=== PATIENT | male | born 1945 | race Caucasian/White ===

== ENCOUNTER 2016-09-27 09:06 | Emergency (ER) | payer OTHER, MEDICARE ==
[~2016-09-27] VITALS: Ht 172.7 cm; Wt 68.2 kg
[~2016-09-27 09:06] MED LIST: BENZ-12 PO; PRD5T PO
[2016-09-27 09:23] VITALS: BP 90/69; PULSE 114; RESP 18; O2SAT 100
--- NOTE | 2016-09-27 09:39 | ED.REPORT ---
HPI-General Illness Date of Service September 27, 2016 ED Provider: Renny Jasmine DO Patient is a 71 year old male with a history of lung cancer with brain mets, CVA and pleural effusion with thoracentesis who presents to the ED complaining of upper back pain that he has had for awhile but it has gotten progressively worse over the past week. Associated symptoms include weakness, cough, shortness of breath, dyspnea on exertion and bilateral lower extremity swelling. He denies abdominal pain. The patient reports that he has been on Oxycodone and Decadron for the past week without relief of pain. Patient recently stopped chemotherapy two weeks ago and is not on any anticoagulants. Nursing Notes Stated Complaint: BACK PAIN Chief Complaint: Back Pain or Injury Nursing Notes Reviewed: Yes Allergies: Coded Allergies: No Known Allergies (Unverified , 02/03/16) Scheduled Prednisone (PredniSONE) 5 Mg Tab 5 MG PO every other day Scheduled PRN Benzonatate (Tessalon Perle) 100 Mg Capsule 100-200 MG PO q8hrs prn PRN PRN For Cough oxyCODONE-Acetaminophen 5-325 mg (oxyCODONE-Acetaminophen 5-325 mg) 1 Each Tablet 1-2 TAB PO Q6H PRN PRN For Pain General Time Seen by MD: 09:36 Chief Complaint Back pain Hx Obtained From: Patient Arrived By: Walk-in Sudden in Onset?: No Onset Occurred: 1 week ago Symptom Duration: Since onset Location: : Back Severity: Current: Moderate Associated with: Reports: Weakness Recent Healthcare: No recent hospitalization, Recent doctor visit Similar Sx Previous: Yes Past Medical History Past Medical History CVA pleural effusion with thoracentesis lung cancer with brain mets Reports: Asthma Past Surgical History PICC bilateral cataract surgery bilateral hernia repair septoplasty pilonidal cyst Smoking History Former Smoker Social History Other Social History: Good social support, Ambulatory Status Independent Review of Systems Full Review of Systems Constitutional: Reports: Weakness - generalized Respiratory: Reports: Dyspnea on exertion, Non-productive cough, Shortness of breath GI: Denies: Abdominal pain Musculoskeletal: Reports: Back pain, Extremity swelling (both legs) Complete sys rev & neg: except as marked. Physical Exam Vital Signs Vital Signs Date Time Temp Pulse Resp B/P Pulse Ox O2 Delivery O2 Flow Rate FiO2 09/27/16 10:40 16 99/63 100 Room Air 09/27/16 09:23 36.2 114 18 90/69 100 Initial VS: Reviewed General/Constitutional: Awake, Alert Appearance / Presentation: Positive: Cachectic, Frail, Pale thin Head / Eyes: Atraumatic, Normocephalic, PERRL, EOMI Respiratory / Chest: Atraumatic, No respiratory distress decreased breath sounds in the right base right posterior chest wall, tender to touch Cardiovascular: Regular rhythm, Heart sounds NL Heart Rate / Rhythm: Positive: Tachycardia Abdomen: Atraumatic, Soft, Non-tender Skin: Atraumatic, Color NL, No rash, Warm, Dry Neurologic: Oriented X3, Speech NL, No motor deficits, No sensory deficits Psychiatric: Affect NL, Mood NL Interpretation & Diagnostics Lab Results Interpretation Result Diagram: 09/27/16 1024 09/27/16 1024 Test 09/27/16 10:24 White Blood Count 7.3th/mm3 (3.8-10.1) Red Blood Count 2.27mil/mm3 (4.40-5.80) Hemoglobin 7.2g/dL (13.8-17.2) Hematocrit 23.9% (41.0-50.0) Mean Corpuscular Volume 105.3fL (81-100) Mean Corpuscular Hemoglobin 31.7pg (27.0-35.0) Mean Corpuscular Hemoglobin Concent 30.1% (32.0-37.0) Red Cell Distribution Width 18.4% (12.3-15.4) Platelet Count 246bil/L (150-400) Neutrophils (%) (Auto) 80.9% (40-74) Lymphocytes (%) (Auto) 4.9% (14-46) Monocytes (%) (Auto) 13.8% (4-12) Eosinophils (%) (Auto) 0.1% (0-5) Basophils (%) (Auto) 0% (0-3) Prothrombin Time 11.3sec (8.1-12.5) Prothromb Time International Ratio 1.05ratio Activated Partial Thromboplast Time 29.4sec (22.8-33.0) Sodium Level 143mEq/L (134-144) Potassium Level 4.1mEq/L (3.5-5.2) Chloride Level 104mEq/L (97-108) Carbon Dioxide Level 20mmol/L (18-29) Blood Urea Nitrogen 23mg/dL (8-27) Creatinine 0.72mg/dL (0.76-1.27) Estimat Glomerular Filtration Rate 115mL/min (>59) Glucose Level 121mg/dL (60-99) Calcium Level 9.3mg/dL (8.5-10.1) Magnesium Level 2.1mg/dL (1.6-2.6) Total Bilirubin 0.5mg/dL (0.0-1.2) Aspartate Amino Transf (AST/SGOT) 34U/L (0-50) Alanine Aminotransferase (ALT/SGPT) 18U/L (0-44) Alkaline Phosphatase 82U/L (25-160) Troponin T 0.010ug/L (0.0-0.011) Total Protein 6.3g/dL (6.4-8.4) Albumin 3.6g/dL (3.4-5.0) Hold Mayers Top Tube Received (Received) ECG Interpretation ECG Interpretation: sinus tachycardia, rate [address] changes Time: 10:03 Interpreted by: ED physician X-Ray Chest Interpretation Chest Xray Interpretation: IMPRESSION: Port-A-Cath (previously present) in normal position but a large pleural effusion has now developed with mass effect deviating the mediastinum leftward, and further assessment for thoracentesis under ultrasound guidance likely is warranted. Alternatively, a chest tube placement may be warranted. The exact anatomy of because of this relatively rapid change is uncertain but likely is progression of the previously present mild to moderate pleural effusion seen during CT scanning 08/19/16. Dictated by: Santana Grewal M.D. on 09/27/2016 at 10:36 Approved by: Santana Grewal M.D. on 09/27/2016 at 10:40 View: Portable, 1 view Interpretation / Wet Read by: Interpret - Radiologist Re-Eval/Medical Decision Med Decision/Clinical Course This is a very pleasant 71-year-old male with the chief complaint of right posterior rib cage pain and exertional shortness of breath. He has near complete opacification of his right lung field due to most likely a malignant pleural effusion. He maintains a normal oxygen saturation at rest and with ambulation. Unfortunately, he did not qualify for home oxygen. Attempts were made in the ER to do bedside thoracentesis under ultrasound guidance, additionally attempts were made to coordinate the placement of a Pleurx catheter, and there was discussion about admission with tube thoracostomy and pleural drainage. Ultimately after extensive family discussions both with radiology and consultation with the primary oncologist, the patient has opted to go home with further pain management, a walker, and close follow-up with the oncologist Source of Hx: Old records Time of Eval: 10:45 Re-Evaluation/Progress Note: Discussed X-ray results and plan for thoracentisis. The patient understands and agrees to the procedure. All questions were addressed. Time of Eval: 11:56 Re-Evaluation/Progress Note: After review of the US, the lung is septated and it would not be therapeutic for a thoracentesis. Discussed options for further treatment including getting a cath placed for constant drainage. Time of Eval: 13:06 Re-Evaluation/Progress Note: Discussed available options for chest tube placement or being discharged with oxygen. The patient would like to be discharged with the home oxygen. Discussed plan for discharge with patient. The patient understands and agrees to the plan for discharge. All questions were addressed. Consultation #1: Referral / Consult Name: Oral Koch MD Consulted With: On-call physician (oncology) Call Returned at: 11:30 Machine Coil Assembler: Agrees with eval, Agrees with plan Note: Recommends the patient follow up with him and if there is no indication for fluid studies, the patient can be discharged. Consultation #2: Consulted With: On-call physician Call Returned at: 12:11 Note: JAY Alexandre, who recommends the surgeon place a chest tube since the pleurx cath is actually not a good option. Consultation #3: Referral / Consult Name: Oral Koch MD Consulted With: On-call physician Call Returned at: 12:21 Machine Coil Assembler: Agrees with eval, Agrees with plan Note: Recommends placing the patient on home oxygen instead of placing a chest tube. Counseled Regarding: Diagnosis, Lab results, Need for follow-up, When/why to return to ED Discharge & Departure Primary Impression: Pleural effusion Additional Impression: Back pain Back pain location: back pain in other location Chronicity: acute Qualified Code: M54.9 - Dorsalgia, unspecified Disposition: Home Discharge Condition All VS Reviewed: Yes Condition: Stable Patient Instructions: Pleural Effusion (ED) Additional Instructions: Thank you for trusting us with your care today. You were seen for today for a pleural effusion We were unable to perform a thoracentesis. Since your lung is septated, it would not be therapeutic. You can increase your pain medication to help manage your pain. Do not overtake your medication as it can cause drowsiness. The oxygen should help with your breathing. Please return to the emergency department if you develop any new or worsening symptoms including fever, chest pain, shortness of breath, weakness, numbness or tingling. Referrals: Jere Robertson MD (PCP) Crit Care Except Billable Proc Time Spent: 30-74 minutes Services Performed: Patient management by me, Time spent at bedside, Reviewing test results Critical Care Notes: See MDM Scribe Attestation Portions of this note were transcribed by Rin Barbour. I, Dr. Dana Costa personally performed the history, physical exam and medical decision-making; I reviewed and confirmed the accuracy of the information in the transcribed note. Signed by: Aly Ferguson, 09/27/16 and 1305 copies to: Jere Robertson MD, Timothy S DO September 27, 2016 09:38 Nandini Barbour September 27, 2016 09:58
[2016-09-27] MEDS ORDERED: 0.9% Sodium Chloride 500 ML IV ONE (09:55)
[2016-09-27] MEDS ORDERED: Ondansetron 2 mg/mL 2 mL Inj IVPUSH ONE (09:55)
[2016-09-27 10:28] LABS: BASOPHILS % (AUTO) 0 % (0-3); EOSINOPHILS % (AUTO) 0.1 % (0-5); MONOCYTES % (AUTO) 13.8 % (4-12); Mean Corpuscular Hemoglobin 31.7 pg (27.0-35.0); Mean Corpuscular Volume 105.3 fL (81-100); NEUTROPHILS % (AUTO) 80.9 % (40-74); Platelet Count 246 bil/L (150-400)
[2016-09-27 10:40] VITALS: BP 99/63; RESP 16; O2SAT 100
--- NOTE | 2016-09-27 10:41 | DRSVH ---
PROCEDURE: X-RAY CHEST ONE VIEW, PORTABLE ([id number]) INDICATIONS: chest pain/hx lung ca and pleural effusion TECHNIQUE: One view of the chest was acquired. COMPARISON: [facility], CT, CT CHEST ABD PELVIS W CON, 08/19/2016, 11:04. [facility], CT, CT JOSEPH, 09/19/2016, 14:20. [facility], CR, XR CHEST 1VW (PORTABLE), 2015, 14:06. [facility], CR, XR CHEST 1VW, 12/21/2015, 9:54. FINDINGS: Surgical changes and devices: Port-A-Cath from a left-sided approach extends to the distal SVC.. Lungs and pleura: There is what appears to be a very large right-sided pleural effusion with mass eff ect deviating the mediastinum leftward, with only a small portion of the medial right upper lung moose ining aerated. Lungs are clear. Mediastinum: Mediastinal contours appear normal. Heart size is normal. Bones and chest wall: No suspicious bony lesions. Overlying soft tissues appear unremarkable. IMPRESSION: Port-A-Cath (previously present) in normal position but a large pleural effusion has now developed with mass effect deviating the mediastinum leftward, and further assessment for thoracentes is under ultrasound guidance likely is warranted. Alternatively, a chest tube placement may be warranted. The exact anatomy of because of this relativ evaristo rapid change is uncertain but likely is progression of the previously present mild to moderate pl eural effusion seen during CT scanning 08/19/16. Dictated by: Santana Grewal M.D. on 09/27/2016 at 10:36 Approved by: Santana Grewal M.D. on 09/27/2016 at 10:40
[2016-09-27 10:44] LABS: INR 1.05 ratio
[2016-09-27 11:00] LABS: TROPONIN T 0.01 ug/L (0.0-0.011)
[2016-09-27 11:11] LABS: Magnesium 2.1 mg/dL (1.6-2.6)
[2016-09-27] MEDS ORDERED: OXYC1TAB24 PO (13:44)
[2016-09-27 14:18] VITALS: BP 117/71; PULSE 94; RESP 17; O2SAT 99
--- NOTE | 2016-09-27 14:52 | DRSVH ---
PROCEDURE: US CHEST/PLEURAL SONOGRAM INDICATIONS: eval for thoracentesis right chest COMPARISON: [facility], CR, XR CHEST 1VW (PORTABLE), 09/27/2016, 10:00. FINDINGS: Multiloculated, honeycomb non-mobile right pleural effusion is present. IMPRESSION: Multiloculated, non-mobile right pleural effusion. Dictated by: Juan Antonio KOEHLER Interpreted: Santana Grewal MD on 09/27/2016 at 14:51 Transcribed by: GURMEET on 09/27/2016 at 14:52 Approved by: Santana Grewal M.D. on 09/27/2016 at 15:33
== END 2016-09-27 12:55 | disposition home or self-care (01) ==
LOC: SED 09:06
DX: J90 Pleural effusion, not elsewhere classified (principal); M54.6 Pain in thoracic spine; R53.1 Weakness; R06.00 Dyspnea, unspecified; M79.89 Other specified soft tissue disorders; J45.909 Unspecified asthma, uncomplicated; Z86.73 Personal history of transient ischemic attack (TIA), and cerebral infarction without residual deficits; Z95.828 Presence of other vascular implants and grafts; Z87.891 Personal history of nicotine dependence
CPT/HCPCS: 36415; 71010; 76604; 80053; 83735; 84484; 85025; 85610; 85730; 93005; 96361; 96374; 96375; 99291; J2270; J2405; J7040

== ENCOUNTER 2016-09-29 01:15 | Inpatient (IN) | payer OTHER, MEDICARE ==
[~2016-09-29] VITALS: Ht 172.7 cm; Wt 68.1 kg
[2016-09-29] VITALS (12 sets, daily range): BP systolic 87–110; BP diastolic 59–77; PULSE 60–99; RESP 12–33; O2SAT 94–100
[~2016-09-29 01:15] MED LIST changes: +OXYC1TAB24 PO
--- NOTE | 2016-09-29 01:18 | ED.REPORT ---
HPI-Dyspnea / Wheezing Date of Service Sep 29, 2016 ED Provider: Dr. Cheema Pt is a 71 y/o male w/ a hx of metastatic lung CA with mets to the brain, asthma , CVA, presenting to the ED via EMS with his daughter c/o worsening SOB and mid- right CP onset today. The patient was seen in the ED yesterday and it was found that he had almost a complete whiteout pleural effusion of his right lung. He was not sent home with oxygen because he passed a road test and did not meet insurance criteria. There was a lengthy discussion during that visit which resulted in the opinion that a chest tube or thoracentesis should not be performed. He has a hospice nurse coming on October 01 to discuss options for end of life care. He experiences SOB while sitting up at rest. His chest pain is somewhat relieved by sitting up and bending over. The patient has been unable to exert himself by walking around due to dyspnea. He has been taking up to 4x oxycodone every 6 hours and relates it has not been working. CODE STATUS: DNR and DNI - discussed with patient, daughter, and friend who is PoA Oncologist: Lizandro Nursing Notes Stated Complaint: INCREASED SHORTNESS OF BREATH Nursing Notes Reviewed: Yes Allergies: Coded Allergies: No Known Allergies (Unverified , 09/29/16) Scheduled Dexamethasone (Dexamethasone) 1 Mg Tab 2 MG PO DAILY Scheduled PRN Benzonatate (Tessalon Perle) 100 Mg Capsule 100-200 MG PO q8hrs prn PRN PRN For Cough Ibuprofen (Ibuprofen) 200 Mg Capsule 200 MG PO QID PRN PRN For Pain Oxycodone (Roxicodone) 5 Mg Tablet 20 MG PO Q4H PRN PRN For Pain General Time Seen by MD: 01:20 Chief Complaint Chest pain, Shortness of breath Hx Obtained From: Patient, Daughter, EMS Arrived By: Ambulance Onset Occurred: 1 - 4 hours ago Symptom Duration: Since onset Location: : Chest right Quality: Painful Severity: Current: Moderate Severity: Maximum: Moderate Past Medical History Past Medical History Notes: Oncologist: Lizandro Past Medical History 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 Physical Exam Initial Vital Signs Vital Signs (First) Date Time Temp Pulse Resp B/P Pulse Ox O2 Delivery O2 Flow Rate FiO2 09/29/16 01:19 93 33 87/59 Room Air Initial VS: Reviewed, Vital signs abnormal Head / Eyes: Atraumatic, Normocephalic, PERRL ENT: Mucous membranes moist, Conjunctiva normal, No scleral icterus Extremities: Vascular intact, Neuro intact, No swelling, No tenderness Neurologic: Alert, Oriented, Nonfocal Psychiatric: Mood/affect normal, Behavior normal, Normal thought content General/Constitutional: Awake, Alert, Cooperative Appearance / Presentation: Positive: Cachectic, Pale Chronically ill-appearing Very hard of hearing CODE STATUS: DNR and DNI - discussed with patient, daughter, and friend who is PoA Neck: Atraumatic, Supple, No meningismus, Full range of motion Respiratory / Chest: Atraumatic, No stridor Sitting upright. Obvious difficulty breathing despite 100% O2 saturation on room air No breath sounds on the right Wheezes present on the left Cardiovascular: Heart rate NL, Regular rhythm, Heart sounds NL, No murmurs No edema Skin: Atraumatic, Dry, Intact Pallor present Re-Eval/Medical Decision Med Decision/Clinical Course 71-year-old man with metastatic lung cancer. Large right pleural effusion with mediastinal shift. Still saturating 100% on room air despite significant pain and tachypnea. We seen in the emergency room yesterday long discussion regarding drainage of the pleural fluid and decision was made to not drain and proceed with comfort measures. Hospice was contacted however they will be old come to his home for at least another 2 days for their initial visit and did not expect begin services for at least 3 days. No meantime he is begun to be significantly marked tachypnea And his 20 mg of oxycodone every 4 hours as no longer adequate for pain control. Will admit for uncontrolled pain and significant hypoxia related to his metastatic cancer with the anticipation of discharge home with hospice as soon as comfort measures and hospital but can be arranged Source of Hx: Old records, EMS, Family Re-Evaluation/Progress : Time of Eval: 01:36 Re-Evaluation/Progress Note: Pt rechecked. Informed pt of need for admission. Pt understands and agrees with plan for admission. All questions addressed. Consultation : Referral / Consult Name: Naun Mckinney MD Consulted With: Hospitalist Call Returned at: 02:05 Dye Range Tender: Will see patient, Agrees with eval, Agrees with plan, Accepts admit Counseled Regarding: Diagnosis, Need for admission Discharge & Departure Impression: Primary Impression: Intractable pain Additional Impressions: Pleural effusion, right Metastatic primary lung cancer Laterality: right Qualified Code: C34.91 - Malignant neoplasm of unspecified part of right bronchus or lung Disposition: ADMITTED TO HOSPITAL Discharge Condition All VS Reviewed: Yes Condition: Stable Referrals: Jere Robertson MD (PCP) Aly Attestation Portions of this note were transcribed by Efrain Connor. I, Dr. Cheema personally performed the history, physical exam and medical decision-making; I reviewed and confirmed the accuracy of the information in the transcribed note. Signed by Aly Craven, 09/29/16 - 0200 copies to: Jere Robertson MD, Shawna L MD Sep 29, 2016 01:18 EFRAIN CONNOR Sep 29, 2016 01:26
[2016-09-29] MEDS ORDERED: 0.9% Sodium Chloride 1,000 ML IV ONE (01:39)
[2016-09-29] MEDS ORDERED: HYDROmorphone 1 mg/mL Inj IVPUSH PRN (01:40)
[2016-09-29] MEDS ORDERED: HYDROmorphone 1 mg/mL Inj IVPUSH ONE (01:40)
[2016-09-29] MEDS ORDERED: Morphine PCA 1 mg/mL 30 mL Inj IV PRN (02:20)
[2016-09-29] MEDS ORDERED: Ondansetron 2 mg/mL 2 mL Inj IVPUSH PRN ×2 (02:20)
[2016-09-29] MEDS ORDERED: Polyethylene Glycol (PEG) 17 Gm Powder PO PRN (02:20)
[2016-09-29] MEDS ORDERED: Alum-Mag Hydrox-Simeth 30 mL Suspension PO PRN (02:20)
[2016-09-29] MEDS ORDERED: DEX1 PO (02:35)
[2016-09-29] MEDS ORDERED: IBUP200C PO (02:35)
[2016-09-29] MEDS ORDERED: OXYC-474 PO (02:35)
--- NOTE | 2016-09-29 04:04 | PCM.HPMED ---
Subjective Date of Service Sep 29, 2016 Primary Provider: Admitting Physician: Naun Mckinney MD Primary Care Physician: Jere Robertson MD Attending Physician: Naun Mckinney MD Chief Complaint: Thoracic pain History of Present Illness: Mr. Short is a 71-year-old male with past medical history of metastatic lung cancer with metastasis to the brain - (voluntarily ending chemotherapy 2 weeks ago), asthma, pleural effusion with thoracentesis and CVA who presented to the ED via EMS in care of daughter and caregiver complaining of worsening shortness of breath and chest pain 1 day. He was seen on 09/27/2016 for back pain with shortness of breath which was refractory to pain medication. Imaging showed that he had an extensive pleural effusion of his right lung "almost a complete white out", after a discussion it was decided that he would not want a chest tube or thoracentesis and was discharged home. Unfortunately he was not sent home with home O2 because he passed a road test and did not meet insurance criteria. He reportedly had an appointment with a hospice nurse on October 01 to discuss options for end-of-life care. Today he states that he is still short of breath and the pain medications he has at home were not adequately resolving his pain. His pain is somewhat relieved by changes in body position those mostly unable to exert himself in anyway secondary to shortness of breath. At time of interview patient's granddaughter and caregiver/friend/POA present in the room. He denies cardiac related chest pain, headache or abdominal pain, and stated the pain medicine he received in the ED was working very well. Patient is a DNR/DNI and is interested in discussions regarding transition to comfort care during this hospital visit Review of Systems: A comprehensive review of systems was conducted with the patient and found to be negative except as above in the history of present illness. 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 pleural effusion with prior thoracentesis Reports: Asthma Surgical History PICC bilateral cataract surgery bilateral hernia repair septoplasty pilonidal cyst Family History Noncontributory Social History Hx Alcohol Use: Yes (QUIT 2000 (WAS MOD TO HEAVY)) Hx Substance Use: No Hx Tobacco Use: Yes (1-4 ppd x50 years) Smoking Status: Former Smoker Exam Vital Signs Vital Sign - Last Date Time Temp Pulse Resp B/P Pulse Ox O2 Delivery O2 Flow Rate FiO2 09/29/16 03:23 36.4 16 108/77 97 1.00 09/29/16 03:17 99 Nasal Cannula Intake and Output 09/28/16 09/28/16 09/29/16 Cumulative From/Thru 15:00 23:00 07:00 09/29/16 01:19 - 09/29/16 03:23 Intake Total 500 ml 500 ml Balance 500 ml 500 ml Intake IV Total 500 ml 500 ml Exam General: Chronically ill-appearing male sitting up in hospital bed in no acute distress, appropriately interactive HEENT: Normocephalic, atraumatic. External ears without defect. Pupils equal, round, and reactive to light and accommodation. Anicteric sclerae, moist conjunctivae, and no lid lag. Very hard of hearing Cardiovascular: Regular rate and rhythm with no murmurs, rubs, or gallops appreciated Pulmonary: Increased respiratory effort with no use of accessory muscles, absent breath sounds in all right lung andino, inspiratory and expiratory wheezes left lung andino Abdomen: Soft, nontender, nondistended Extremities: No clubbing, cyanosis, edema, or lymphadenopathy appreciated. Skin: Pallor Neurological: Cranial nerves grossly intact. Psychiatric: Normal mood and affect. Alert and oriented to person, place, and time. Lab and Diagnostics X-Rays, CTs and MRIs . MRI BRAIN WITH AND WITHOUT CONTRAST IMPRESSION: 1. Significant worsening of intracranial metastases. 2. 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 2. No midline shift. Dictated by: Ezio Hutchison M.D. on 09/17/2016 X-RAY CHEST ONE VIEW, PORTABLE IMPRESSION: Port-A-Cath (previously present) in normal position but a large pleural effusion has now developed with mass effect deviating the mediastinum leftward, and further assessment for thoracentesis under ultrasound guidance likely is warranted. Alternatively, a chest tube placement may be warranted. The exact anatomy of because of this relatively rapid change is uncertain but likely is progression of the previously present mild to moderate pleural effusion seen during CT scanning 08/19/16. Dictated by: Santana Grewal M.D. on 09/27/2016 US CHEST/PLEURAL SONOGRAM IMPRESSION: Multiloculated, non-mobile right pleural effusion. Dictated by: Juan Antonio Daniels RRA Interpreted: Santana Grewal MD on 09/27/2016 Assessment & Plan Mr. Short is a 71-year-old male with past medical history of metastatic lung cancer with metastasis to the brain, asthma, pleural effusion admitted for shortness of breath and thoracic chest pain secondary to advancement of terminal disease process. Metastatic lung cancer with metastases to brain. Present on admission. Ongoing - Medications for patient comfort to include IV morphine [employer], Ativan - Palliative care consult ordered, with patient's stated goal of transitioning to comfort care Malignant Pleural Effusion - Pt does not wish to have thoracentesis or chest tube placement - Continue with supportive care Asthma. Present admission. Ongoing - DuoNeb's when necessary Patient Status: Patient was admitted under inpatient status with expected length of stay greater than two midnights due to severity of presenting symptoms , risk of adverse event, and complexity of treatment plan. Pain Evaluation: Adequate Pain Control Resuscitation Status: DNR/DNI:Do Not Resuscitate/Intubate Attending Statement The patient was seen and examined together with Dr. Jarvis on 09/29 and I agree with the history, exam and plan as outlined in the note above. CATE JARVIS DO Sep 29, 2016 04:04 Naun Mckinney MD Sep 29, 2016 04:39
[2016-09-29] MEDS ORDERED: Albuterol-Ipratropium 3 mL Inhalation Solution NEB PRN (04:15)
--- NOTE | 2016-09-29 06:29 | NUR ---
ADMISSION PT ARRIVED ON UNIT FROM ER AT 0300. TRANSPORTED VIA GURNEY. 3 PERSONS TO TRANSFER TO BED. PT IS HERE FOR PAIN CONTROL AND BREATHING RELATED TO LUNG CANCER WITH METS TO BRAIN. PT HAD REC'D DILAUDID IN THE ER SO REPORTED PAIN AT 2-3/10 WHICH IS TOLERABLE, PAIN LOCATED IN RIGHT SHOULDER. PT IS DNR-REVIEWED WHILE MD IN ROOM. DAUGHTER AND ROUSTABOUT CREW PUSHER AT BEDSIDE. PT ORIENTED TO CALL LIGHT AND BED/TV CONTROLS. PT IS A/O X3, HAS SOME TROUBLE REMEMBERING HIS WORDS AND IS [place]. GENERAL DIET, PT STATES HE HAS HAD A GOOD APPETITE UP UNTIL YESTERDAY. HE HAD BEEN TO ER AND HAD FLUID DRAINED FROM HIS LUNGS. PT STATED HE HAS BEEN HAVING CHEMO AND RADIATION A FEW DAYS AGO WHEN HE GOT REALLY SICK. PT IS ON 1-2L O2 FOR COMFORT, HOSPICE CONSULT IS SCHEDULED ALREADY BY FAMILY AND PT. HE WISHES TO GO BACK HOME. 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 IV PATENT.
--- NOTE | 2016-09-29 09:36 | NUR ---
Social work Note - Initial Assessment Xavier Short is a 71 yr old who was admitted for intractable pain. Pt has Metastatic Lung CA that is no longer being treated. EMR reviewed: Pt has HMA and Medicare insurance, his PCP is Dr Robertson. Readmit score is not available. See attached CM initial assessment. HEALTHCARE EDUCATOR attempted to meet with pt - pt asleep, pain is controlled. HEALTHCARE EDUCATOR called Pt's DPOA - Marline Wynne [phone] who states that pt lives with him in [place]. He and his family have decided to transition to Hospice - have the initial paperwork done, and hospice was to open for services on MondayOctober 01. He however could not handle the pain. They have a walker at home, but would need a hospital bed and are open to whatever equipment would be helpful. He does not have O2 set up at home. HEALTHCARE EDUCATOR spoke with [facility] at [facility] - [phone] who confirmed open date of 10/01/16 at 10:00. BRIANNE described equipment needs of the family and Elen will reach out to family to set up delivery time. HEALTHCARE EDUCATOR discussed with Raina HERNANDEZ who will continue to follow. Plan: [facility] early Monday Morning- family hopes to transport by POV depending on Pt's pain/ability to transfer or Cabulance. TRI Ryan Addendum: 09/29/16 at 0944 by CHOLO WARREN SS Amended: Links added.
--- NOTE | 2016-09-29 11:13 | NUR ---
Palliative Care Palliative Care received order from Dr Jarvis 09/29/16 to assist with goals of care and pain management. Patient with lung cancer with mets to brain, was admitted last night due to dyspnea and intractable pain. He has told medical team he wants to transition to comfort care. Hospice can open on 10/01/16. Pt. may be able to D/C before this date if his symptoms are well managed. Dr Seay saw patient for Outpatient Palliative consult on 08/29/16. Patient resides with family. Marline Wynne (friend/dpoa) [phone] Adeline Hernandez (daughter) [phone] Palliative Care to follow. June Pérez
[2016-09-29] MEDS ORDERED: Morphine 20 mg/mL Oral Syringe SL/PO PRN (15:35)
--- NOTE | 2016-09-29 15:46 | PCM.CONPAL ---
Date of Service Sep 29, 2016 Date of Hospital Admission: Sep 29, 2016 at 02:28 Date of Palliative Consult: Sep 29, 2016 Requesting Provider: CATE ARREOLA DO Reason Palliative Care Consult: Pain, Goals of Care Discussion, Hospice Referral & Discussion Hospital Unit @time of consult: Orthopedic/Surgical Care Palliative Care Recommendation Summary of palliative recommendations: -Symptom management (Pain/other) Pain -- requiring minimal meds for control. Will try oral meds-MS lorazepam and haldol PRN Hospice notified. CM notified he will need hospital bed and O2 for comfort Effusion- apparently at ER decided this cannot be tapped- will treat medically Known brain mets- remains mentally astute and has no sz -DPOA/Advanced Directives/POLST--DNR/DNI/no FT -Family/emotional support--profound with Marline and his patt [place] Additional Medical Diagnoses with primary management by Hospitalist team include : Problems: End of Life Preferences DNR/comfort Disposition Home when able to get hospital bed and hospice at least near Resuscitation Status Resuscitation Status: DNR/DNI:Do Not Resuscitate/Intubate POLST Updates/Changes Previous POLST?: Yes POLST Discussed with: Patient . Advanced Care Planning Address: Comfort care Pain: Moderate Symptom management: Dyspnea, Constipation (will check with family before addressing constipation) Pt History History of Present Illness Mr. Short is a 71-year-old male with past medical history of metastatic lung cancer with metastasis to the brain - (voluntarily ending chemotherapy 2 weeks ago), asthma, pleural effusion with thoracentesis and CVA who presented to the ED via EMS in care of daughter and caregiver complaining of worsening shortness of breath and chest pain 1 day. He was seen on 09/27/2016 for back pain with shortness of breath which was refractory to pain medication. Imaging showed that he had an extensive pleural effusion of his right lung "almost a complete white out", after a discussion it was decided that he would not want a chest tube or thoracentesis and was discharged home. Unfortunately he was not sent home with home O2 because he passed a road test and did not meet insurance criteria. He reportedly had an appointment with a hospice nurse on October 01 to discuss options for end-of-life care. Today he states that he is still short of breath and the pain medications he has at home were not adequately resolving his pain. His pain is somewhat relieved by changes in body position those mostly unable to exert himself in anyway secondary to shortness of breath. At time of interview patient's granddaughter and caregiver/friend/POA present in the room. He denies cardiac related chest pain, headache or abdominal pain, and stated the pain medicine he received in the ED was working very well. 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 He has been on his final option for chemo but his ds has been progressing so he recently quit txmt and is now awaiting Hospice to be able to open. Oxycodone at home was not enough to cover his pain. He was seen in the ER and given IV hydromorphone and lorazepam and that has lasted him 6-8 hours He is weak, anoretic, SOB. He is intermittently confused but doesn't think he had a BM in the past week. He has been assisted at home by his exGF Marline who moved in with him a number of months ago to help him and by his daughter Kizzy. They have already been in contact with Hospice and are set up to open on Sat. He has done all the paperwork including DPOAHC and a will and completed a POLST 1 month ago DNR. 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 Q4H PRN IVPUSH; Start 09/29/16 at 02: 20 Al Hydrox/Mg Hydrox/Simethicone 30 ml Q6H PRN PO; Start 09/29/16 at 02:20 Ondansetron HCl 4 to 8 mg Q4H PRN IVPUSH; Start 09/29/16 at 02:20 Senna 17.2 mg BID PRN PO; Start 09/29/16 at 02:20 Polyethylene Glycol 17 gm DAILY PRN PO; Start 09/29/16 at 02:20 Albuterol/ Ipratropium 3 ml Q4H PRN NEB; Start 09/29/16 at 04:15 Lorazepam 1 mg PRN PRN IVPUSH; Start 09/29/16 at 04:15 Scheduled Dexamethasone (Dexamethasone) 1 Mg Tab 2 MG PO DAILY Scheduled PRN Benzonatate (Tessalon Perle) 100 Mg Capsule 100-200 MG PO q8hrs prn PRN PRN For Cough Ibuprofen (Ibuprofen) 200 Mg Capsule 200 MG PO QID PRN PRN For Pain Oxycodone (Roxicodone) 5 Mg Tablet 20 MG PO Q4H PRN PRN For Pain Objective Findings Exam Vital Sign - Last Date Time Temp Pulse Resp B/P Pulse Ox O2 Delivery O2 Flow Rate FiO2 09/29/16 11:55 36.4 99 18 107/73 94 Room Air 09/29/16 03:23 1.00 Intake and Output 09/28/16 09/28/16 09/29/16 Cumulative From/Thru 15:00 23:00 07:00 09/29/16 01:19 - 09/29/16 03:57 Intake Total 500 ml 500 ml Balance 500 ml 500 ml Intake IV Total 500 ml 500 ml General: Alert/Oriented x3, Other (recognizes me from 1 month ago, dyspneic, not moving much in bed due to discomfort) HEENT: PERRLA, Scleral Anicteric Heart: Tachycardia Lungs: Tachypneic, Other (dull R CXR with near complete opacification) Abdomen: Soft Neuro: Cranial Nerve 3-12 Intact Lab/Diagnostics Lab and Imaging results reviewed in detail in EMR. effusion thought to be to loculated to tap Patient/Family Conference Members Present Family Members Present pt Medical Team Members Present? Eulalia AGUILA PC Discussion/Goals of Care Discussion FAMILY UNDERSTANDING OF DISEASE: Patient is very straightforward in requesting comfort care, meds as needed and goal to get home to with assistance of hospice DISEASE PROGRESSION/EVIDENCE OF DECLINE:sudden profound decline SYMPTOM BURDEN: pain dyspnea and weakness-profound Time spent Total time 50 minutes; >50% face to face with patient and/or family, providing counselling regarding plans and recommendations, and in care coordination with his/her medical teams. I also spent an additional [ ] minutes counseling for advanced care planning with the patient/the patients family/the surrogate decision maker. copies to: Oral Koch MD, Deborah A MD Sep 29, 2016 15:46
--- NOTE | 2016-09-29 19:51 | NUR ---
Constipation/Pain Last BM was 09/22 per pt and caregiver. Dr. Seay notified and recommended starting with Senchristine. CLAUDY RN to administer this evening. Pt has denied pain most of the day while at rest and minimally used his RN CORRECTIONAL (6mg). Palliative ordered liquid Morphine which he would like to start tonight before bed. Hospice visit set up for tomorrow.
[2016-09-30 03:03] VITALS: RESP 18
[2016-09-30] MEDS: Morphine 2 mg/mL 5 mL Oral Solution PO PRN ×5 (05:58→21:16)
--- NOTE | 2016-09-30 06:09 | NUR ---
Medication/Pain Pt utilizes BUTTON TUFTER for pain control, willing to try Oral Morphine in AM. Offered Senna in addition. Pt allows repositioning, wears O2 2L at noc. No CPOX per pt comfort. Repositioned when willing. Some urine voided this shift, minimal amount. IV TKO in RFA peripheral IV. Care continues
[2016-09-30 06:50] VITALS: RESP 18
--- NOTE | 2016-09-30 09:15 | PCM.PALLBR ---
Palliative Care Recommendation Summary of palliative recommendations: -Symptom management (Pain/other) Pain -- MAR reviewed, used 10mg IV morphine overnight (equals 30mg po morphine) 1. D/C SUPERVISOR PAPER TESTING morphine. 2. Start MS long acting 15mg po BID for pain and dyspnea 3. Continue MS liquid 2mg po q 4h for breakthrough symptoms of pain and dyspnea. Please send home on #2 and #3 meds above. Hospice notified. CM notified on 09/29 that he will need hospital bed and O2 for comfort Effusion- apparently at ER decided this cannot be tapped- will treat medically Known brain mets- remains mentally astute and has no sz DPOA/Advanced Directives/POLST: DNR/DNI/no FT Family/emotional support: ex GF Marline and his dtr Kizzy Problems: End of Life Preferences DNR/comfort Goals of Care Wants to go home with hospice Disposition Home when able to get hospital bed and hospice at least near Resuscitation Status Resuscitation Status: DNR/DNI:Do Not Resuscitate/Intubate POLST Updates/Changes Previous POLST?: Yes POLST Last Review Date: Sep 29, 2016 Artificially Admin Nutrition: No Artifical Nutrition by Tube POLST Discussed with: Patient POLST Review Outcome: No Change . Pain: Moderate Symptom management: Dyspnea Total time 35 minutes; >50% face to face with patient and/or family, providing counselling regarding plans and recommendations, and in care coordination with his/her medical teams. I also spent an additional [ ] minutes counseling for advanced care planning with the patient/the patients family/the surrogate decision maker. Palliative Brief Note Date of Service Sep 30, 2016 . Patient Identification Mr. Short is a 71-year-old male with past medical history of metastatic lung cancer with metastasis to the brain - (voluntarily ending chemotherapy 2 weeks ago), asthma, pleural effusion with thoracentesis and CVA who presented to the ED via EMS in care of daughter and caregiver complaining of worsening shortness of breath and chest pain 1 day. He was seen on 09/27/2016 for back pain with shortness of breath which was refractory to pain medication. Imaging showed that he had an extensive pleural effusion of his right lung "almost a complete white out", after a discussion it was decided that he would not want a chest tube or thoracentesis and was discharged home. Unfortunately he was not sent home with home O2 because he passed a road test and did not meet insurance criteria. He reportedly had an appointment with a hospice nurse on October 01 to discuss options for end-of-life care. He was admitted for dyspnea and intractable pain which has been relieved by a SUPERVISOR PAPER TESTING morphine. Hospital Course On workup of his dyspnea, he was found to have a massive R pleural effusion that was loculated , so not tapped. He is willing to transition to hospice at home as soon as his pain and dyspnea are in better control. He was also constipated, likely related to opiates and bedrest. He has been assisted at home by his exGF Marline who moved in with him a number of months ago to help him and by his daughter Kizzy. They have already been in contact with Hospice and are set up to open on Sat. He has done all the paperwork including DPOAHC and a will and completed a POLST 1 month ago DNR. His PPS was 90% 1 month ago, he was still driving, walking with a cane but working hard to do all his ADLs He is now PPS 20-30 Subjective: he reports the morphine IV is working, but still "not enough." He feels ready to swallow pills today and try to turn off the SUPERVISOR PAPER TESTING. Exam: General: emaciated, frail elderly man, able to sit up in bed with one assist, using handrails. HEENT: PERRL, EOMI, pupils pinpoint, makes direct eye contact. bitemporal wasting Lungs: wet rhonchi Cor: S1,S2, rrr Abdomen: soft, nontender Extrem: no edema Neuro: Alert and orient x 3, has insight into disease, nonfocal CN MS: generalized weakness, nonfocal. Adela Reid MD Sep 30, 2016 09:15
[2016-09-30] MEDS: Morphine ER 15 mg (MS Contin) Tablet PO SCH ×2 (09:25→21:15)
[2016-09-30 12:01] VITALS: PULSE 108; RESP 22; O2SAT 99
--- NOTE | 2016-09-30 12:56 | PCM.PNMED ---
Subjective Date of Service Sep 30, 2016 Subjective JANITOR CUSTODIAN is off, switched to morphine oral, looked comfortable, mildly labored breathing with upper respiratory sounds, otherwise no complaints, awaits dispo Exam Vital Signs Vital Sign - Last Date Time Temp Pulse Resp B/P Pulse Ox O2 Delivery O2 Flow Rate FiO2 09/30/16 12:01 108 22 99 Nasal Cannula 2.00 09/29/16 19:24 36.6 103/70 Intake and Output 09/29/16 09/29/16 09/30/16 Cumulative From/Thru 15:00 23:00 07:00 09/29/16 01:19 - 09/30/16 06:37 Intake Total 60 ml 467 ml 1027 ml Output Total 0 ml 220 ml 220 ml Balance 60 ml 247 ml 807 ml Intake Oral 60 ml 200 ml 260 ml IV Total 267 ml 767 ml Output Urine Total 0 ml 220 ml 220 ml # Bowel Movements 0 0 IVs and Medications Medications Reviewed: Medications were reviewed in detail Lab and Diagnostics X-Rays, CTs and MRIs . MRI BRAIN WITH AND WITHOUT CONTRAST IMPRESSION: 1. Significant worsening of intracranial metastases. 2. 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 2. No midline shift. Dictated by: Ezio Hutchison M.D. on 09/17/2016 X-RAY CHEST ONE VIEW, PORTABLE IMPRESSION: Port-A-Cath (previously present) in normal position but a large pleural effusion has now developed with mass effect deviating the mediastinum leftward, and further assessment for thoracentesis under ultrasound guidance likely is warranted. Alternatively, a chest tube placement may be warranted. The exact anatomy of because of this relatively rapid change is uncertain but likely is progression of the previously present mild to moderate pleural effusion seen during CT scanning 08/19/16. Dictated by: Santana Grewal M.D. on 09/27/2016 US CHEST/PLEURAL SONOGRAM IMPRESSION: Multiloculated, non-mobile right pleural effusion. Dictated by: Juan Antonio Daniels [facility] Interpreted: Santana Grewal MD on 09/27/2016 Assessment & Plan Mr. Short is a 71-year-old male with past medical history of metastatic lung cancer with metastasis to the brain, asthma, pleural effusion admitted for shortness of breath and thoracic chest pain secondary to advancement of terminal disease process. Metastatic lung cancer with metastases to brain. Present on admission. Ongoing - pt seemed comfortable with current management - Medications for patient comfort to include IV morphine JANITOR CUSTODIAN, Ativan, now on morphine standing prn dosing per Palliative care - hospice to be set up tomorrow, Malignant Pleural Effusion - Pt does not wish to have thoracentesis or chest tube placement - Continue with supportive care Asthma. Present admission. Ongoing - DuoNeb's when necessary Patient Status: discharge tomorrow with hospice Resuscitation Status: DNR/DNI:Do Not Resuscitate/Intubate Time spent 35min Ayala Gerber MD Sep 30, 2016 12:56
--- NOTE | 2016-09-30 15:50 | NUR ---
ARRANGED BLS TRANSPORT TO PRIVATE RESIDENCE ON [facility] FOR 9AM. ADVISED SCRAP METAL PROCESSING WORKER.
[2016-09-30 20:28] VITALS: PULSE 50; RESP 20; O2SAT 98
[2016-10-01 04:35] VITALS: BP 101/72; PULSE 77; RESP 18; O2SAT 93
--- NOTE | 2016-10-01 05:15 | NUR ---
Pain management MS Contin appears to be providing adequate pain relief, one dose of oral morphine given at bedtime. Denied significant pain at later checks. Able to reposition self in bed and stand at bedside for voiding with assistance; no evidence of increased pain with activity or otherwise. Hourly rounding ongoing.
[2016-10-01] MEDS ORDERED: HAL05 PO (08:28)
[2016-10-01] MEDS ORDERED: DEX1 PO (08:28)
[2016-10-01] MEDS ORDERED: LORA-303 PO (08:28)
[2016-10-01] MEDS ORDERED: MORP-32 PO (08:28)
[2016-10-01] MEDS ORDERED: MORP10SO PO (08:28)
--- NOTE | 2016-10-01 08:30 | PCM.DIMED ---
Discharge Instructions Date of Service Oct 01, 2016 Dates of Hospitalization Sep 29, 2016 at 02:28 Discharge Diagnosis Discharge Diagnosis Metastatic lung cancer with metastases to brain. Malignant Pleural Effusion Asthma. Medication Instructions Additional med instructions MS long acting 15mg po BID for pain and dyspnea Continue MS liquid 2mg po q 4h for breakthrough symptoms of pain and dyspnea. Take ativan 1mg tid as needed for anxiety Take Haldol0.5mg po q4h prn for nausea, agitation Take dexamethasone 4mg daily Patient Instructions Patient Instructions You were hospitalized with intractable pain, pain was now better controlled. Please continue care with hospice at home. Ayala Gerber MD Oct 01, 2016 08:30
[2016-10-01] MEDS: Morphine ER 15 mg (MS Contin) Tablet PO SCH (08:52)
--- NOTE | 2016-10-01 09:12 | NUR ---
Discharged home per BLS, family will be there and he will be transitioning to Hospice care. New Rx sent with him for Haldol, Lorazepam, MS Contin, liquid MS, and Decadron. Pt received his am meds but refused breakfast. follow up care per Hospice. Pt alert, aware he is transferring home
--- NOTE | 2016-10-01 09:20 | NUR ---
Social Work: Discharge D: EMR reviewed. Pt is on day 2 of hospitalization. Pt was transported via BLS home to open with [facility] at 1000am this morning. SW completed PCS transfer form and updated family on pt's pick-up. Family will meet pt at home. SW confirmed with hospice that pt was transported on time. A: Pt for whom home with hospice has been deemed medically necessary. P: Pt transported home via BLS at 0900 this morning. Pt will open with hospice at 1000 this morning. Pt, family, and hospice updated on pt's transport. All agreeable to plan. MARY Ortiz
--- NOTE | 2016-10-02 14:14 | PCM.DC.MED ---
Discharge Summary Date of Service Oct 01, 2016 Dates of Hospitalization Date of Hospital Admission Sep 29, 2016 at 02:28 Date of Discharge: Oct 01, 2016 Providers: Admitting Physician: Naun Mckinney MD Primary Care Physician: Jere Robertson MD Attending Physician: Naun Mckinney MD Diagnosis at Time of Discharge Diagnosis at Time of Discharge Metastatic lung cancer with metastases to brain on Comfort care, hospice Malignant Pleural Effusion Asthma. Consultations palliative care Procedures XRay, CTs & MRIs . MRI BRAIN WITH AND WITHOUT CONTRAST IMPRESSION: 1. Significant worsening of intracranial metastases. 2. 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 2. No midline shift. Dictated by: Ezio Hutchison M.D. on 09/17/2016 X-RAY CHEST ONE VIEW, PORTABLE IMPRESSION: Port-A-Cath (previously present) in normal position but a large pleural effusion has now developed with mass effect deviating the mediastinum leftward, and further assessment for thoracentesis under ultrasound guidance likely is warranted. Alternatively, a chest tube placement may be warranted. The exact anatomy of because of this relatively rapid change is uncertain but likely is progression of the previously present mild to moderate pleural effusion seen during CT scanning 08/19/16. Dictated by: Santana Grewal M.D. on 09/27/2016 US CHEST/PLEURAL SONOGRAM IMPRESSION: Multiloculated, non-mobile right pleural effusion. Dictated by: Juan Antonio Daniels [facility] Interpreted: Santana Grewal MD on 09/27/2016 Brief History HPI obtained by on 09/29 Mr. Short is a 71-year-old male with past medical history of metastatic lung cancer with metastasis to the brain - (voluntarily ending chemotherapy 2 weeks ago), asthma, pleural effusion with thoracentesis and CVA who presented to the ED via EMS in care of daughter and caregiver complaining of worsening shortness of breath and chest pain 1 day. He was seen on 09/27/2016 for back pain with shortness of breath which was refractory to pain medication. Imaging showed that he had an extensive pleural effusion of his right lung "almost a complete white out", after a discussion it was decided that he would not want a chest tube or thoracentesis and was discharged home. Unfortunately he was not sent home with home O2 because he passed a road test and did not meet insurance criteria. He reportedly had an appointment with a hospice nurse on October 01 to discuss options for end-of-life care. Today he states that he is still short of breath and the pain medications he has at home were not adequately resolving his pain. His pain is somewhat relieved by changes in body position those mostly unable to exert himself in anyway secondary to shortness of breath. At time of interview patient's granddaughter and caregiver/friend/POA present in the room. He denies cardiac related chest pain, headache or abdominal pain, and stated the pain medicine he received in the ED was working very well. 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 He has been on his final option for chemo but his ds has been progressing so he recently quit txmt and is now awaiting Hospice to be able to open. Oxycodone at home was not enough to cover his pain. He was seen in the ER and given IV hydromorphone and lorazepam and that has lasted him 6-8 hours He is weak, anoretic, SOB. He is intermittently confused but doesn't think he had a BM in the past week. He has been assisted at home by his exGF Marline who moved in with him a number of months ago to help him and by his daughter Kizzy. They have already been in contact with Hospice and are set up to open on Sat. He has done all the paperwork including DPOAHC and a will and completed a POLST 1 month ago DNR. His PPS was 90% 1 month ago, he was still driving, walking with a cane but working hard to do all his ADLs He is now PPS 20-30 Hospital Course Mr. Short is a 71-year-old male with past medical history of metastatic lung cancer with metastasis to the brain, asthma, pleural effusion admitted for shortness of breath and thoracic chest pain secondary to advancement of terminal disease process. Metastatic lung cancer with metastases to brain. patient was admitted for pain control. patient was started new regimen with MS contin, morphine sulfate, ativan, dexamethasone per palliative care. Hospice was established on the day of d/c. patient was discharged with comfortable condition. Malignant Pleural Effusion, Pt does not wish to have thoracentesis or chest tube placement, continued with supportive care Asthma. stable w/ DuoNeb's when necessary Exam Vital Signs (Last) Date Time Temp Pulse Resp B/P Pulse Ox O2 Delivery O2 Flow Rate FiO2 10/01/16 04:35 36.8 77 18 101/72 93 Room Air 09/30/16 20:28 2.00 Discharge Medications Discharge Medications Dexamethasone (Dexamethasone) 1 Mg Tab 4 MG PO DAILY Prescribed by: AYALA SIMON MD Morphine Sulfate ER (Morphine Sulfate ER) 15 Mg Tablet 15 MG PO BID Prescribed by: AYALA SIMON MD As needed Benzonatate (Tessalon Perle) 100 Mg Capsule 100-200 MG PO q8hrs prn PRN PRN For Cough (Reported) Haloperidol (Haloperidol) 0.5 Mg Tablet 0.5 MG PO Q4H PRN PRN For Nausea or agitation Prescribed by: AYALA SIMON MD Ibuprofen (Ibuprofen) 200 Mg Capsule 200 MG PO QID PRN PRN For Pain (Reported) Lorazepam (Ativan) 1 Mg Tablet 1 MG PO TID PRN PRN For Anxiety Prescribed by: AYALA SIMON MD Morphine Sulfate Oral Soln (Morphine Sulfate Oral Soln) 10 Mg/5 Ml Solution 2- 10 MG PO Q2H PRN PRN For Moderate Pain Prescribed by: AYALA SIMON MD Oxycodone (Roxicodone) 5 Mg Tablet 20 MG PO Q4H PRN PRN For Pain (Reported) Additional med instructions MS long acting 15mg po BID for pain and dyspnea Continue MS liquid 2mg po q 4h for breakthrough symptoms of pain and dyspnea. Take ativan 1mg tid as needed for anxiety Take Haldol0.5mg po q4h prn for nausea, agitation Take dexamethasone 4mg daily Followup Plan Disposition: home Patient Instructions You were hospitalized with intractable pain, pain was now better controlled. Please continue care with hospice at home. Time spent 65min Ayala Simon MD Oct 02, 2016 14:14
== END 2016-10-01 09:14 | disposition hospice, home (50) | DRG 948 ==
LOC: SED 01:15 → OSC 02:28
PROVIDERS: ADMIT Hospitalist; ATTEND Hospitalist
DX: G89.3 Neoplasm related pain (acute) (chronic) (principal); C34.90 Malignant neoplasm of unspecified part of unspecified bronchus or lung; C79.31 Secondary malignant neoplasm of brain; J91.0 Malignant pleural effusion; Z86.73 Personal history of transient ischemic attack (TIA), and cerebral infarction without residual deficits; Z66 Do not resuscitate; Z87.891 Personal history of nicotine dependence; Z51.5 Encounter for palliative care; J45.909 Unspecified asthma, uncomplicated